=== PATIENT | male | born 1965 | race African-American/Black ===

== ENCOUNTER 2020-04-11 14:20 | Inpatient (IN) | payer OTHER ==
[2020-04-11] MEDS ORDERED: SODIUM CHLORIDE 0.9% 500 ML INFUS.BAG IV ONE (14:55)
[2020-04-11 15:06] LABS: VENOUS BASE EXCESS 2.7 mmol/L (-2-2); VENOUS O2 SATURATION 33.6 % (70-80); VENOUS PCO2 56.5 mmHg (38-52); VENOUS PH 7.339 (7.310-7.410)
[2020-04-11 15:19] LABS: BASO % 1.3 % (0-2.0); HEMATOCRIT 39.9 % (35.4-49); LYMPH % 10.5 % (8-40); MCH 25.3 pg (25.7-33.7); MCHC 32.5 g/dl (32.0-35.9); MEAN CELL VOLUME 77.7 fl (80-96); MEAN PLT VOLUME 8.7 fl (7.5-11.1); MONO % 13.7 % (3.8-10.2); NEUT % 74.5 % (42.8-82.8); PLATELET COUNT 148 K/MM3 (134-434); RBC 5.14 M/mm3 (4.00-5.60); RDW 19.5 % (11.9-15.9); WHITE BLOOD COUNT 4.3 K/mm3 (4.0-10.0)
[2020-04-11 15:27] LABS: INR 1.06 (0.83-1.09)
[2020-04-11 15:29] LABS: ACTIVATED PTT 28.9 SECONDS (25.2-36.5)
[2020-04-11 15:31] LABS: POTASSIUM 4.9 mmol/L (3.5-5.1)
[2020-04-11 15:34] LABS: BLOOD UREA NITROGEN 58.8 mg/dL (7-18)
[2020-04-11 15:35] LABS: ALBUMIN 3.4 g/dl (3.4-5.0); MAGNESIUM 2.5 mg/dL (1.8-2.4)
[2020-04-11 15:37] LABS: BILIRUBIN,DIRECT 0.2 mg/dL (0.0-0.2); PHOSPHOROUS 6.4 mg/dL (2.5-4.9)
[2020-04-11 15:38] LABS: BILIRUBIN,TOTAL 0.5 mg/dL (0.2-1)
[2020-04-11 15:39] LABS: TOT PROT 8.9 g/dl (6.4-8.2)
[2020-04-11 15:40] LABS: N-TERMINAL BNP 2528.7 pg/ml (5-125)
[2020-04-11] MEDS ORDERED: DEXAMETHASONE SOD PHOSPHATE 10 MG/1 ML VIAL IVPUSH ONE (16:33)
[2020-04-11 16:35] LABS: CREATININE 14.7 mg/dL (0.55-1.3)
[2020-04-11] MEDS ORDERED: DEXAMETHASONE SOD PHOSPHATE 10 MG/1 ML VIAL ONE (16:47)
[2020-04-11] MEDS ORDERED: CEFTRIAXONE 1 GM/50 ML BAG ONE (17:53)
[2020-04-11] MEDS ORDERED: AZITHROMYCIN IVPB 500 MG/250 ML BAG IVPB ONE (17:53)
[2020-04-11] MEDS: CEFTRIAXONE 1 GM in DEXTROSE 5%-WATER - 50 ML IVPB SCH (18:00)
[2020-04-11] MEDS ORDERED: ACETAMINOPHEN 325 MG TABLET (FP) PO PRN (18:04)
[2020-04-11] MEDS ORDERED: ACETAMINOPHEN 325 MG TABLET (FP) ONE (18:26)
[2020-04-11] MEDS: AZITHROMYCIN IVPB 500 MG/250 ML BAG IVPB SCH (20:10)
[2020-04-11] MEDS ORDERED: HEPARIN NA (PORCINE) 5,000 UNITS/ML 1ML VIAL ONE (22:31)
[2020-04-11] MEDS: HEPARIN NA (PORCINE) 5,000 UNITS/ML 1ML VIAL SQ SCH (22:39)
[2020-04-12] MEDS ORDERED: LOPERAMIDE HCL 2 MG CAPSULE PO PRN (02:21)
[2020-04-12] MEDS ORDERED: LOPERAMIDE HCL 2 MG CAPSULE ONE (02:58)
[2020-04-12] MEDS: HEPARIN NA (PORCINE) 5,000 UNITS/ML 1ML VIAL SQ SCH ×3 (07:53→21:18)
[2020-04-12] MEDS ORDERED: SEVELAMER CARBONATE 800 MG TAB (FP) PO SCH (08:00)
[2020-04-12] MEDS ORDERED: PT OWN MED DRAWER 7, Y5N ONE (08:43)
[2020-04-12] MEDS ORDERED: DEXTROSE 5%-WATER - 50 ML IVPB ONE (09:04)
[2020-04-12] MEDS ORDERED: cefTRIAXone SODIUM 1 GM VIAL ONE (09:04)
[2020-04-12 09:34] LABS: BASO % 0.2 % (0-2.0); HEMATOCRIT 36.1 % (35.4-49); HEMOGLOBIN 11.9 GM/dL (11.7-16.9); LYMPH % 15.6 % (8-40); MCH 25.8 pg (25.7-33.7); MCHC 33.1 g/dl (32.0-35.9); MEAN CELL VOLUME 77.8 fl (80-96); MEAN PLT VOLUME 8.2 fl (7.5-11.1); MONO % 7.8 % (3.8-10.2); NEUT % 76.4 % (42.8-82.8); PLATELET COUNT 163 K/MM3 (134-434); RBC 4.63 M/mm3 (4.00-5.60); RDW 19.4 % (11.9-15.9); RETICULOCYTES 0.44 % (0.5-1.5); WHITE BLOOD COUNT 2.1 K/mm3 (4.0-10.0)
[2020-04-12 09:41] LABS: POTASSIUM 5.4 mmol/L (3.5-5.1)
[2020-04-12] MEDS: DEXAMETHASONE SOD PHOSPHATE 4 MG/1 ML VIAL IVPUSH SCH (09:42)
[2020-04-12] MEDS: AZITHROMYCIN IVPB 500 MG/250 ML BAG IVPB SCH (09:42)
[2020-04-12] MEDS: CEFTRIAXONE 1 GM in DEXTROSE 5%-WATER - 50 ML IVPB SCH (09:42)
[2020-04-12 10:00] LABS: CALCIUM 8.3 mg/dL (8.5-10.1)
[2020-04-12 10:01] LABS: MAGNESIUM 2.4 mg/dL (1.8-2.4)
[2020-04-12 10:05] LABS: BILIRUBIN,TOTAL 0.6 mg/dL (0.2-1)
[2020-04-12 10:07] LABS: PHOSPHOROUS 8.4 mg/dL (2.5-4.9)
[2020-04-12 10:37] LABS: CREATININE 17.4 mg/dL (0.55-1.3)
[2020-04-12] MEDS ORDERED: SODIUM ZIRCONIUM CYCLOSILICATE (LOKELMA) 5 GM PACKET PO ONE (12:15)
[2020-04-12] MEDS: SEVELAMER CARBONATE 800 MG TAB (FP) PO SCH ×2 (12:20→18:00)
[2020-04-13] MEDS: HEPARIN NA (PORCINE) 5,000 UNITS/ML 1ML VIAL SQ SCH ×3 (06:35→21:52)
[2020-04-13] MEDS: SEVELAMER CARBONATE 800 MG TAB (FP) PO SCH ×3 (08:00→17:24)
[2020-04-13] MEDS ORDERED: SODIUM CHLORIDE 250 ML IV PRN (08:49)
[2020-04-13] MEDS ORDERED: PARICALCITOL 5 MCG/ML VIAL IVPUSH ONE (09:00)
[2020-04-13 09:48] LABS: HEMATOCRIT 35.7 % (35.4-49); HEMOGLOBIN 11.9 GM/dL (11.7-16.9); MCH 25.8 pg (25.7-33.7); MCHC 33.4 g/dl (32.0-35.9); MEAN CELL VOLUME 77.4 fl (80-96); MEAN PLT VOLUME 8.1 fl (7.5-11.1); PLATELET COUNT 228 K/MM3 (134-434); RBC 4.61 M/mm3 (4.00-5.60); RDW 19.7 % (11.9-15.9); WHITE BLOOD COUNT 9.8 K/mm3 (4.0-10.0)
[2020-04-13 09:58] LABS: POTASSIUM 5.1 mmol/L (3.5-5.1)
[2020-04-13 09:59] LABS: CALCIUM 8.6 mg/dL (8.5-10.1); MAGNESIUM 2.6 mg/dL (1.8-2.4)
[2020-04-13] MEDS ORDERED: AZITHROMYCIN 250 MG TABLET PO SCH ×2 (10:30)
[2020-04-13 10:57] LABS: PHOSPHOROUS 8.2 mg/dL (2.5-4.9)
[2020-04-13 11:24] LABS: BLOOD UREA NITROGEN 110.7 mg/dL (7-18); CREATININE 20.1 mg/dL (0.55-1.3)
[2020-04-13] MEDS: DEXAMETHASONE SOD PHOSPHATE 4 MG/1 ML VIAL IVPUSH SCH (12:42)
[2020-04-13] MEDS: BUDESONIDE/FORMETEROL FUMARATE 160/4.5 mcg INHALER IH SCH ×2 (14:39→21:54)
[2020-04-13] MEDS ORDERED: SODIUM CHLORIDE 250 ML IV STA (18:26)
[2020-04-14] MEDS: HEPARIN NA (PORCINE) 5,000 UNITS/ML 1ML VIAL SQ SCH ×3 (05:21→22:14)
[2020-04-14 08:02] LABS: HEMOGLOBIN 10.9 GM/dL (11.7-16.9); MCH 25.7 pg (25.7-33.7); MCHC 32.9 g/dl (32.0-35.9); MEAN CELL VOLUME 77.9 fl (80-96); PLATELET COUNT 228 K/MM3 (134-434); RBC 4.24 M/mm3 (4.00-5.60); RDW 19.1 % (11.9-15.9); WHITE BLOOD COUNT 9.3 K/mm3 (4.0-10.0)
[2020-04-14 08:18] LABS: POTASSIUM 4.8 mmol/L (3.5-5.1)
[2020-04-14 08:19] LABS: CALCIUM 7.9 mg/dL (8.5-10.1); MAGNESIUM 2.3 mg/dL (1.8-2.4)
[2020-04-14 08:23] LABS: BLOOD UREA NITROGEN 68.6 mg/dL (7-18)
[2020-04-14 08:37] LABS: CREATININE 13.4 mg/dL (0.55-1.3)
[2020-04-14] MEDS: guaiFENesin/CODEINE 5 ML UNIT-DOSE CUPS PO PRN ×3 (10:08→22:14)
[2020-04-14] MEDS: BUDESONIDE/FORMETEROL FUMARATE 160/4.5 mcg INHALER IH SCH ×2 (10:09→22:14)
[2020-04-14] MEDS: DEXAMETHASONE SOD PHOSPHATE 4 MG/1 ML VIAL IVPUSH SCH (10:09)
[2020-04-14] MEDS: SEVELAMER CARBONATE 800 MG TAB (FP) PO SCH ×3 (10:09→18:30)
[2020-04-14] MEDS ORDERED: SODIUM CHLORIDE 250 ML IV PRN (16:55)
[2020-04-15 02:07] LABS: HEP B CORE AB, TOT Negative (Negative)
[2020-04-15] MEDS: HEPARIN NA (PORCINE) 5,000 UNITS/ML 1ML VIAL SQ SCH ×3 (06:01→21:32)
[2020-04-15] MEDS: SEVELAMER CARBONATE 800 MG TAB (FP) PO SCH ×3 (08:30→17:58)
[2020-04-15 08:48] LABS: BASO % 0.5 % (0-2.0); EOS % 2.8 % (0-4.5); HEMATOCRIT 35.1 % (35.4-49); HEMOGLOBIN 11.7 GM/dL (11.7-16.9); LYMPH % 13.4 % (8-40); MCH 26.3 pg (25.7-33.7); MCHC 33.3 g/dl (32.0-35.9); MEAN CELL VOLUME 79.1 fl (80-96); MEAN PLT VOLUME 7.1 fl (7.5-11.1); NEUT % 73.3 % (42.8-82.8); PLATELET COUNT 312 K/MM3 (134-434); RBC 4.44 M/mm3 (4.00-5.60); RDW 15.5 % (11.9-15.9); WHITE BLOOD COUNT 7.3 K/mm3 (4.0-10.0)
[2020-04-15 09:20] LABS: ALBUMIN 2.5 g/dl (3.4-5.0); PHOSPHOROUS 7.9 mg/dL (2.5-4.9)
[2020-04-15 09:21] LABS: BILIRUBIN,TOTAL 0.7 mg/dL (0.2-1); CALCIUM 8.2 mg/dL (8.5-10.1); MAGNESIUM 2.6 mg/dL (1.8-2.4)
[2020-04-15 09:24] LABS: BLOOD UREA NITROGEN 102.1 mg/dL (7-18)
[2020-04-15 09:26] LABS: CREATININE 16.9 mg/dL (0.55-1.3)
[2020-04-15 11:46] LABS: ANISOCYTOSIS 0; HELMET CELLS 0; HOWELL-JOLLY BODIES 0; MACROCYTOSIS 0; OVALOCYTE 0; PLATELET ESTIMATE NORMAL; ROULEAU 0; SICKELED CELLS 0; TARGET CELLS 0; TEAR DROP CELLS 0; TOXIC GRANULATION 0
[2020-04-15] MEDS: DEXAMETHASONE SOD PHOSPHATE 4 MG/1 ML VIAL IVPUSH SCH (12:20)
[2020-04-15] MEDS: BUDESONIDE/FORMETEROL FUMARATE 160/4.5 mcg INHALER IH SCH ×2 (12:22→21:44)
[2020-04-15] MEDS: guaiFENesin/D-METHORPHAN TAB.ER.12H PO SCH ×2 (12:22→21:33)
[2020-04-15] MEDS: AZITHROMYCIN IVPB 500 MG/250 ML BAG IVPB SCH (12:22)
[2020-04-15] MEDS ORDERED: REMDESIVIR 200 MG in SODIUM CHLORIDE 210 ML IVPB ONE (13:00)
[2020-04-16] MEDS: HEPARIN NA (PORCINE) 5,000 UNITS/ML 1ML VIAL SQ SCH ×3 (06:26→21:55)
[2020-04-16] MEDS: SEVELAMER CARBONATE 800 MG TAB (FP) PO SCH ×3 (08:45→17:18)
[2020-04-16 08:54] LABS: BASO % 0.1 % (0-2.0); HEMATOCRIT 31.2 % (35.4-49); MCH 25.3 pg (25.7-33.7); MCHC 32.1 g/dl (32.0-35.9); MEAN CELL VOLUME 78.9 fl (80-96); MEAN PLT VOLUME 7.9 fl (7.5-11.1); NEUT % 83.9 % (42.8-82.8); PLATELET COUNT 280 K/MM3 (134-434); RBC 3.96 M/mm3 (4.00-5.60); RDW 19.4 % (11.9-15.9)
[2020-04-16 09:01] LABS: POTASSIUM 5.2 mmol/L (3.5-5.1)
[2020-04-16 09:03] LABS: CALCIUM 7.9 mg/dL (8.5-10.1)
[2020-04-16 09:04] LABS: ALBUMIN 2.3 g/dl (3.4-5.0); MAGNESIUM 2.4 mg/dL (1.8-2.4)
[2020-04-16 09:07] LABS: PHOSPHOROUS 7.7 mg/dL (2.5-4.9)
[2020-04-16 09:09] LABS: BILIRUBIN,TOTAL 0.6 mg/dL (0.2-1); TOT PROT 6.4 g/dl (6.4-8.2)
[2020-04-16] MEDS: metoPROLOL SUCCINATE 25 MG TAB.SR.24H (FP) PO SCH (09:15)
[2020-04-16] MEDS: ASPIRIN COATED 81 MG TABLET.EC PO SCH (09:15)
[2020-04-16] MEDS: VALSARTAN 40 MG TABLET PO SCH (09:15)
[2020-04-16] MEDS: BUDESONIDE/FORMETEROL FUMARATE 160/4.5 mcg INHALER IH SCH ×2 (09:16→21:55)
[2020-04-16] MEDS: AZITHROMYCIN IVPB 500 MG/250 ML BAG IVPB SCH (09:16)
[2020-04-16] MEDS: DEXAMETHASONE SOD PHOSPHATE 4 MG/1 ML VIAL IVPUSH SCH (09:16)
[2020-04-16] MEDS: guaiFENesin/D-METHORPHAN TAB.ER.12H PO SCH ×2 (09:16→21:55)
[2020-04-16 09:47] LABS: CREATININE 11.5 mg/dL (0.55-1.3)
[2020-04-16] MEDS ORDERED: SODIUM ZIRCONIUM CYCLOSILICATE (LOKELMA) 5 GM PACKET PO ONE (11:00)
[2020-04-16] MEDS: REMDESIVIR 100 MG in SODIUM CHLORIDE 230 ML IVPB SCH (12:38)
[2020-04-16] MEDS: ROSUVASTATIN CA 10 MG TABLET (FP) PO SCH (21:55)
[2020-04-17] MEDS: HEPARIN NA (PORCINE) 5,000 UNITS/ML 1ML VIAL SQ SCH ×3 (06:36→22:15)
[2020-04-17] MEDS: SEVELAMER CARBONATE 800 MG TAB (FP) PO SCH ×3 (08:22→17:59)
[2020-04-17 08:48] LABS: BASO % 0.2 % (0-2.0); HEMATOCRIT 32.2 % (35.4-49); HEMOGLOBIN 10.7 GM/dL (11.7-16.9); LYMPH % 11.3 % (8-40); MCH 25.7 pg (25.7-33.7); MCHC 33.1 g/dl (32.0-35.9); MEAN CELL VOLUME 77.5 fl (80-96); MEAN PLT VOLUME 7.4 fl (7.5-11.1); MONO % 10.4 % (3.8-10.2); NEUT % 78.1 % (42.8-82.8); PLATELET COUNT 396 K/MM3 (134-434); RBC 4.16 M/mm3 (4.00-5.60); RDW 19.7 % (11.9-15.9); WHITE BLOOD COUNT 6.9 K/mm3 (4.0-10.0)
[2020-04-17 09:04] LABS: POTASSIUM 4.6 mmol/L (3.5-5.1)
[2020-04-17 09:22] LABS: ALBUMIN 2.4 g/dl (3.4-5.0); CALCIUM 8.3 mg/dL (8.5-10.1)
[2020-04-17 09:23] LABS: MAGNESIUM 2.7 mg/dL (1.8-2.4)
[2020-04-17 09:26] LABS: BILIRUBIN,TOTAL 0.8 mg/dL (0.2-1)
[2020-04-17 09:28] LABS: TOT PROT 6.8 g/dl (6.4-8.2)
[2020-04-17 10:24] LABS: BLOOD UREA NITROGEN 106.3 mg/dL (7-18); CREATININE 14.6 mg/dL (0.55-1.3)
[2020-04-17] MEDS: metoPROLOL SUCCINATE 25 MG TAB.SR.24H (FP) PO SCH (10:25)
[2020-04-17] MEDS: BUDESONIDE/FORMETEROL FUMARATE 160/4.5 mcg INHALER IH SCH ×2 (10:26→22:17)
[2020-04-17] MEDS: VALSARTAN 40 MG TABLET PO SCH (10:26)
[2020-04-17] MEDS: DEXAMETHASONE SOD PHOSPHATE 4 MG/1 ML VIAL IVPUSH SCH (10:27)
[2020-04-17] MEDS: ASPIRIN COATED 81 MG TABLET.EC PO SCH (10:27)
[2020-04-17] MEDS: AZITHROMYCIN IVPB 500 MG/250 ML BAG IVPB SCH (10:27)
[2020-04-17] MEDS ORDERED: INSULIN (NOVOLOG) ASPART 100 UNITS/ML 10ML VIAL ONE (11:29)
[2020-04-17] MEDS ORDERED: PT OWN MED DRAWER 7, Y5N ONE (12:11)
[2020-04-17] MEDS: guaiFENesin/D-METHORPHAN TAB.ER.12H PO SCH ×2 (12:41→22:15)
[2020-04-17] MEDS: REMDESIVIR 100 MG in SODIUM CHLORIDE 230 ML IVPB SCH (12:42)
[2020-04-17] MEDS ORDERED: SODIUM CHLORIDE 250 ML IV PRN (17:56)
[2020-04-17] MEDS ORDERED: SODIUM CHLORIDE NASAL SPRAY 44 ML BOTTLE NS ONE (21:12)
[2020-04-17] MEDS: ROSUVASTATIN CA 10 MG TABLET (FP) PO SCH (22:15)
[2020-04-18] MEDS: HEPARIN NA (PORCINE) 5,000 UNITS/ML 1ML VIAL SQ SCH ×2 (06:09→15:01)
[2020-04-18] MEDS ORDERED: HEPARIN NA (PORCINE) 5,000 UNITS/ML 1ML VIAL IVPUSH ONE (07:30)
[2020-04-18] MEDS: SEVELAMER CARBONATE 800 MG TAB (FP) PO SCH ×3 (08:01→17:31)
[2020-04-18 10:00] LABS: BASO % 0.1 % (0-2.0); EOS % 0.1 % (0-4.5); HEMATOCRIT 32.2 % (35.4-49); HEMOGLOBIN 10.2 GM/dL (11.7-16.9); LYMPH % 8.8 % (8-40); MCHC 31.9 g/dl (32.0-35.9); MEAN CELL VOLUME 78.4 fl (80-96); MEAN PLT VOLUME 7.8 fl (7.5-11.1); PLATELET COUNT 424 K/MM3 (134-434); RDW 19.7 % (11.9-15.9); WHITE BLOOD COUNT 7.9 K/mm3 (4.0-10.0)
[2020-04-18] MEDS ORDERED: AZITHROMYCIN IVPB 500 MG/250 ML BAG IVPB ONE (10:00)
[2020-04-18 10:25] LABS: POTASSIUM 4.9 mmol/L (3.5-5.1)
[2020-04-18 10:27] LABS: CALCIUM 8.3 mg/dL (8.5-10.1)
[2020-04-18 10:28] LABS: ALBUMIN 2.3 g/dl (3.4-5.0)
[2020-04-18 10:29] LABS: MAGNESIUM 2.7 mg/dL (1.8-2.4)
[2020-04-18 10:32] LABS: BILIRUBIN,TOTAL 1.1 mg/dL (0.2-1)
[2020-04-18 10:33] LABS: TOT PROT 6.4 g/dl (6.4-8.2)
[2020-04-18 10:43] LABS: PHOSPHOROUS 8.8 mg/dL (2.5-4.9)
[2020-04-18 10:56] LABS: BLOOD UREA NITROGEN 140.4 mg/dL (7-18)
[2020-04-18 10:57] LABS: CREATININE 16.8 mg/dL (0.55-1.3)
[2020-04-18] MEDS: DEXAMETHASONE SOD PHOSPHATE 4 MG/1 ML VIAL IVPUSH SCH (11:34)
[2020-04-18] MEDS: VALSARTAN 40 MG TABLET PO SCH (11:34)
[2020-04-18] MEDS: ASPIRIN COATED 81 MG TABLET.EC PO SCH (11:34)
[2020-04-18] MEDS: metoPROLOL SUCCINATE 25 MG TAB.SR.24H (FP) PO SCH (11:34)
[2020-04-18] MEDS: guaiFENesin/D-METHORPHAN TAB.ER.12H PO SCH ×2 (11:35→21:59)
[2020-04-18] MEDS: BUDESONIDE/FORMETEROL FUMARATE 160/4.5 mcg INHALER IH SCH ×2 (11:35→21:59)
[2020-04-18] MEDS: REMDESIVIR 100 MG in SODIUM CHLORIDE 230 ML IVPB SCH (13:24)
[2020-04-18] MEDS: ROSUVASTATIN CA 10 MG TABLET (FP) PO SCH (21:59)
[2020-04-19] MEDS: metoPROLOL SUCCINATE 25 MG TAB.SR.24H (FP) PO SCH (09:43)
[2020-04-19] MEDS: DEXAMETHASONE SOD PHOSPHATE 4 MG/1 ML VIAL IVPUSH SCH (09:43)
[2020-04-19] MEDS: ASPIRIN COATED 81 MG TABLET.EC PO SCH (09:43)
[2020-04-19] MEDS: SEVELAMER CARBONATE 800 MG TAB (FP) PO SCH ×3 (09:43→17:43)
[2020-04-19] MEDS: BUDESONIDE/FORMETEROL FUMARATE 160/4.5 mcg INHALER IH SCH ×2 (09:44→21:15)
[2020-04-19] MEDS: guaiFENesin/D-METHORPHAN TAB.ER.12H PO SCH ×2 (09:44→21:14)
[2020-04-19 11:29] LABS: BASO % 0.1 % (0-2.0); EOS % 1.1 % (0-4.5); HEMATOCRIT 31.9 % (35.4-49); HEMOGLOBIN 10.4 GM/dL (11.7-16.9); LYMPH % 7.4 % (8-40); MCH 25.2 pg (25.7-33.7); MCHC 32.5 g/dl (32.0-35.9); MEAN CELL VOLUME 77.6 fl (80-96); MEAN PLT VOLUME 7.2 fl (7.5-11.1); MONO % 12.3 % (3.8-10.2); NEUT % 79.1 % (42.8-82.8); PLATELET COUNT 384 K/MM3 (134-434); RBC 4.11 M/mm3 (4.00-5.60); RDW 19.5 % (11.9-15.9); WHITE BLOOD COUNT 6.9 K/mm3 (4.0-10.0)
[2020-04-19 11:53] LABS: POTASSIUM 4.6 mmol/L (3.5-5.1)
[2020-04-19 11:55] LABS: CALCIUM 8.1 mg/dL (8.5-10.1)
[2020-04-19 11:56] LABS: ALBUMIN 2.2 g/dl (3.4-5.0); MAGNESIUM 2.3 mg/dL (1.8-2.4)
[2020-04-19] MEDS ORDERED: SODIUM CHLORIDE 250 ML IV PRN (11:56)
[2020-04-19 11:59] LABS: PHOSPHOROUS 7.8 mg/dL (2.5-4.9)
[2020-04-19 12:00] LABS: BILIRUBIN,TOTAL 0.9 mg/dL (0.2-1); TOT PROT 6.2 g/dl (6.4-8.2)
[2020-04-19 12:04] LABS: BLOOD UREA NITROGEN 79.7 mg/dL (7-18)
[2020-04-19 12:10] LABS: CREATININE 11.3 mg/dL (0.55-1.3)
[2020-04-19] MEDS: REMDESIVIR 100 MG in SODIUM CHLORIDE 230 ML IVPB SCH (13:07)
[2020-04-19] MEDS: ROSUVASTATIN CA 10 MG TABLET (FP) PO SCH (21:11)
[2020-04-19] MEDS: APIXABAN 2.5 MG TABLET PO SCH (21:14)
[2020-04-20] MEDS: SEVELAMER CARBONATE 800 MG TAB (FP) PO SCH ×3 (08:30→17:51)
[2020-04-20] MEDS ORDERED: PETROLATUM, WHITE 30 GM TUBE TP PRN (08:57)
[2020-04-20 10:47] LABS: HEMATOCRIT 31.5 % (35.4-49); HEMOGLOBIN 10.1 GM/dL (11.7-16.9); MCH 25.1 pg (25.7-33.7); MEAN CELL VOLUME 78.2 fl (80-96); MEAN PLT VOLUME 7.7 fl (7.5-11.1); PLATELET COUNT 422 K/MM3 (134-434); RBC 4.02 M/mm3 (4.00-5.60); RDW 19.7 % (11.9-15.9); WHITE BLOOD COUNT 9.4 K/mm3 (4.0-10.0)
[2020-04-20] MEDS ORDERED: HEPARIN NA (PORCINE) 5,000 UNITS/ML 1ML VIAL IVPUSH ONE (11:56)
[2020-04-20] MEDS: DEXAMETHASONE SOD PHOSPHATE 4 MG/1 ML VIAL IVPUSH SCH (13:04)
[2020-04-20] MEDS: BUDESONIDE/FORMETEROL FUMARATE 160/4.5 mcg INHALER IH SCH ×2 (13:05→21:16)
[2020-04-20] MEDS: metoPROLOL SUCCINATE 25 MG TAB.SR.24H (FP) PO SCH (13:05)
[2020-04-20] MEDS: ASPIRIN COATED 81 MG TABLET.EC PO SCH (13:05)
[2020-04-20] MEDS: APIXABAN 2.5 MG TABLET PO SCH ×2 (13:05→21:15)
[2020-04-20] MEDS: guaiFENesin/D-METHORPHAN TAB.ER.12H PO SCH ×2 (13:05→21:16)
[2020-04-20] MEDS ORDERED: SILVER NITRATE 75% APPLIC STCK 1 PKT EACH TP ONE (15:41)
[2020-04-20] MEDS: ROSUVASTATIN CA 10 MG TABLET (FP) PO SCH (21:15)
[2020-04-21] MEDS: SEVELAMER CARBONATE 800 MG TAB (FP) PO SCH ×3 (08:51→17:23)
[2020-04-21 08:55] VITALS: TEMP 97.6
[2020-04-21] MEDS: APIXABAN 2.5 MG TABLET PO SCH (09:04)
[2020-04-21] MEDS: BUDESONIDE/FORMETEROL FUMARATE 160/4.5 mcg INHALER IH SCH (09:04)
[2020-04-21] MEDS: guaiFENesin/D-METHORPHAN TAB.ER.12H PO SCH (09:04)
[2020-04-21] MEDS: DEXAMETHASONE SOD PHOSPHATE 4 MG/1 ML VIAL IVPUSH SCH (09:04)
[2020-04-21] MEDS: metoPROLOL SUCCINATE 25 MG TAB.SR.24H (FP) PO SCH (09:04)
[2020-04-21] MEDS: ASPIRIN COATED 81 MG TABLET.EC PO SCH (09:04)
[2020-04-21 10:40] VITALS: BMI 44.1
[2020-04-21 18:24] VITALS: BP 138/70; PULSE 90
== END 2020-04-21 18:29 | DRG 871 ==
LOC: JER 14:20 → JERBED 15:20 → J4W 04-12 06:07
PROVIDERS: ADMIT Internal Medicine; ATTEND Internal Medicine
PROC: XW13325 Transfusion of Convalescent Plasma (Nonautologous) into Peripheral Vein, Percutaneous Approach, New Technology Group 5 (ICD-10-PCS; principal; 2020-04-12)
PROC: 5A1D70Z Performance of Urinary Filtration, Intermittent, Less than 6 Hours Per Day (ICD-10-PCS; 2020-04-12)
PROC: XW033E5 Introduction of Remdesivir Anti-infective into Peripheral Vein, Percutaneous Approach, New Technology Group 5 (ICD-10-PCS; 2020-04-15)
PROC: 093K7ZZ Control Bleeding in Nasal Mucosa and Soft Tissue, Via Natural or Artificial Opening (ICD-10-PCS; 2020-04-21)
DX: A41.89 Other specified sepsis (principal); N18.6 End stage renal disease; J96.01 Acute respiratory failure with hypoxia; U07.1 COVID-19; J12.82 Pneumonia due to coronavirus disease 2019; I12.0 Hypertensive chronic kidney disease with stage 5 chronic kidney disease or end stage renal disease; Z68.41 Body mass index [BMI] 40.0-44.9, adult; Z99.2 Dependence on renal dialysis; D64.9 Anemia, unspecified; E87.5 Hyperkalemia; E21.3 Hyperparathyroidism, unspecified; R55 Syncope and collapse; E78.00 Pure hypercholesterolemia, unspecified; I44.7 Left bundle-branch block, unspecified; E83.39 Other disorders of phosphorus metabolism; R04.0 Epistaxis; G47.33 Obstructive sleep apnea (adult) (pediatric)
CPT/HCPCS: 36415; 36430; 70450-TC; 71045-TC-FY; 80048; 80053; 80061; 82248; 82550; 82553; 82728; 82803; 83090; 83605; 83615; 83721; 83735; 83880; 84100; 84443; 84484; 85025; 85027; 85045; 85379; 85610; 85730; 86140; 86704; 86706; 86707; 86708; 86709; 86803; 86850; 86900; 86901; 87040; 87070; 87109; 87205; 87340; 87804; 93005; 93010; 93306-TC; 94010; 94660; 97116-GP; 97162-GP; C9399; C9803; J1100; J1644; P9017; U0003